=== PATIENT | female | born 1985 | race Caucasian/White ===

== ENCOUNTER 2023-06-12 09:50 | Day surgery (SDC) | payer OTHER ==
[2023-06-07 12:15] VITALS: BMI 51.5
[2023-06-12] MEDS ORDERED: Bupivacaine PF 0.5% 30 ML VIAL ONE (12:33)
[2023-06-12] MEDS ORDERED: fentaNYL 50 mcg/mL 1 mL Vial ONE (12:37)
[2023-06-12] MEDS ORDERED: PROPOFOL 20 ML ONE (12:37)
[2023-06-12] MEDS ORDERED: Ketorolac Tromethamine 30 MG/ML VIAL ONE (12:37)
[2023-06-12] MEDS ORDERED: Lidocaine 1% PF 5 ML VIAL ONE (12:37)
[2023-06-12] MEDS ORDERED: Dexamethasone 20 MG/5 ML VIAL ONE (12:37)
[2023-06-12] MEDS ORDERED: Ondansetron PF 4 MG/2 ML Vial ONE (12:37)
[2023-06-12] MEDS ORDERED: Midazolam HCl 2 mg/2 ml Vial ONE (12:38)
== END 2023-06-12 14:40 | disposition home or self-care (01) ==
LOC: CSHSDC 09:50 → EDSEX 09:50 → CSHSDC 14:40
PROVIDERS: ATTEND Podiatrist Foot & Ankle Surgery
PROC: 0J8Q0ZZ Division of Right Foot Subcutaneous Tissue and Fascia, Open Approach (ICD-10-PCS; principal; 2023-06-12)
DX: M72.2 Plantar fascial fibromatosis (principal); M77.31 Calcaneal spur, right foot; I10 Essential (primary) hypertension; E66.01 Morbid (severe) obesity due to excess calories; Z68.43 Body mass index [BMI] 50.0-59.9, adult; Z79.899 Other long term (current) drug therapy; Z88.5 Allergy status to narcotic agent; Z90.49 Acquired absence of other specified parts of digestive tract
CPT/HCPCS: J1100; J1885; J2250; J2405; J2704; J3010; S0020